=== PATIENT | female | born 1950 | race Caucasian/White ===

== ENCOUNTER 2016-05-03 07:21 | Day surgery (SDC) | payer MEDICARE ==
[~2016-05-03 07:21] MED LIST: FENTANYL 250 MCG/5 ML AMP IV PRN; LACTATED RINGERS 1,000 ML IV SCH; MIDAZOLAM HCL 5 MG/5 ML VIAL IV PRN
[2016-05-03] MEDS ORDERED: IV START KIT ONE (07:23)
[2016-05-03] MEDS ORDERED: LIDOCAINE 1% 2 ML VIAL ID PRN (07:24)
[2016-05-03] MEDS ORDERED: LACTATED RINGERS 1,000 ML IV SCH (07:24)
[2016-05-03] MEDS ORDERED: ONDANSETRON 4 MG/2ML 2 ML VIAL IV PRN (07:24)
[2016-05-03] MEDS ORDERED: MIDAZOLAM HCL 5 MG/5 ML VIAL ONE (08:07)
[2016-05-03] MEDS ORDERED: FENTANYL 5 ML ONE (08:07)
== END 2016-05-03 09:01 | disposition home or self-care (01) ==
LOC: SDC 07:21
PROVIDERS: ATTEND Internal Medicine Gastroenterology
PROC: 0DJD8ZZ Inspection of Lower Intestinal Tract, Via Natural or Artificial Opening Endoscopic (ICD-10-PCS; principal; 2016-05-03)
DX: Z12.11 Encounter for screening for malignant neoplasm of colon (principal); K57.30 Diverticulosis of large intestine without perforation or abscess without bleeding; I10 Essential (primary) hypertension; E78.5 Hyperlipidemia, unspecified; L50.9 Urticaria, unspecified; Z88.8 Allergy status to other drugs, medicaments and biological substances; Z79.82 Long term (current) use of aspirin
CPT/HCPCS: G0121 ×4